=== PATIENT | female | born 1995 | race Caucasian/White ===

== ENCOUNTER 2021-01-22 21:40 | Emergency (ER) | payer OTHER ==
[2021-01-22 22:01] VITALS: BP 120/75; PULSE 75; TEMP 98.3; BMI 27.4
[2021-01-22] MEDS ORDERED: MAG HYDROX/AL HYDROX/SIMETH -MYLANTA- ORAL SUSPENSION PO ONE (23:56)
[2021-01-22] MEDS ORDERED: FAMOTIDINE 20 MG TABLET PO ONE (23:56)
[2021-01-23] MEDS ORDERED: FAMOTIDINE 20 MG TABLET ONE (00:08)
[2021-01-23] MEDS ORDERED: MAG HYDROX/AL HYDROX/SIMETH 30 ML UNIT-DOSE CUP ONE (00:08)
[2021-01-23 00:37] LABS: BASO % 0.7 % (0-2.0); EOS % 2.6 % (0-4.5); HEMATOCRIT 40.4 % (32.4-45.2); HEMOGLOBIN 13.4 GM/dL (10.7-15.3); LYMPH % 32.8 % (8-40); MCH 29.2 pg (25.7-33.7); MEAN CELL VOLUME 88.5 fl (80-96); MEAN PLT VOLUME 10.9 fl (7.5-11.1); NEUT % 56.9 % (42.8-82.8); PLATELET COUNT 193 10^3/uL (134-434); RBC 4.57 M/mm3 (3.60-5.2); RDW 12.9 % (11.6-15.6); WHITE BLOOD COUNT 11.2 K/mm3 (4.0-10.0)
[2021-01-23 00:57] LABS: ALBUMIN 4.2 g/dl (3.4-5.0); BLOOD UREA NITROGEN 11.3 mg/dL (7-18)
[2021-01-23 01:00] LABS: CREATININE 0.6 mg/dL (0.55-1.3)
[2021-01-23 01:01] LABS: BILIRUBIN,TOTAL 0.2 mg/dL (0.2-1); TOT PROT 7.9 g/dl (6.4-8.2)
== END 2021-01-23 01:35 | disposition home or self-care (01) ==
LOC: JER 21:40
DX: R10.13 Epigastric pain (principal)
CPT/HCPCS: 36415; 76705-TC; 80053; 84703; 85025; 99284-25